=== PATIENT | male | born 1950 | race Caucasian/White ===

== ENCOUNTER → 2017-12-24 11:11 | Outpatient (CLI) | payer MEDICARE, OTHER, SELFPAY ==
--- NOTE | 2017-12-24 11:18 | RAD_ITS ---
STUDY: X-RAY - LEFT CLAVICLE REASON FOR EXAM: Male, 67 years old. Pain TECHNIQUE: Two view(s) of the clavicle. COMPARISON: None. FINDINGS: Normal clavicle. Normal acromioclavicular articulation. Normal visualized sternoclavicular articulation. There is a small calcific density just superior to the acromion. RAD/Clavicle IMPRESSION: No significant abnormalities are seen in the left clavicle. There are mild degenerative changes in the left shoulder. Electronically Signed: Riri Garvin MD at 23:55 EDT Tel Direct: [phone], Service support ,
== END ==
PROVIDERS: Family Provider Internal Medicine; PCP Internal Medicine; Visit Provider Internal Medicine
DX: M19.012 Primary osteoarthritis, left shoulder (principal)
CPT/HCPCS: 73000

== ENCOUNTER → 2018-01-08 07:16 | Outpatient (CLI) | payer MEDICARE, OTHER, SELFPAY ==
--- NOTE | 2018-01-08 07:15 | CT_ITS ---
STUDY: CT CHEST WITHOUT CONTRAST REASON FOR EXAM: Male, 67 years old. Swelling around left clavicle, history of basal cell cancer and melanoma RADIATION DOSAGE (If Supplied By Facility): CTDIvol = ( 17.38 ) mGy, DLP = ( 707.95 ) mGycm TECHNIQUE: Transaxial imaging of the chest was performed without intravenous contrast material. Sagittal and coronal reconstructions were performed. Individualized dose optimization techniques were used for this CT. COMPARISON: Left clavicle images dated December 24, 2017 FINDINGS: There is minimal dependent atelectasis in both lungs. There is a 3 mm opacity in the periphery of the right middle lobe on series 4 image 95. There is no demonstrated pleural abnormality. The heart is normal in size. There are calcifications of the coronary arteries. There are small lymph nodes scattered in the mediastinum. The hilar regions are unremarkable allowing for lack of contrast in the vessels. The pulmonary arteries are unremarkable. There are minimal vascular calcifications in the thoracic aorta. Incidentally noted is takeoff of the left vertebral artery from the aortic arch which is a normal anatomic variant. There are moderate degenerative changes in the visualized spine. There are mild degenerative changes in both shoulders. There are surgical clips in the left neck. There are no significant abnormalities in the visualized upper abdomen. CT/Chest without Contrast IMPRESSION: No abnormalities are seen in or around the left clavicle. There are no enlarged lymph nodes around the left clavicle. There are no abnormal masses. There are no abnormal bone masses. There are moderate degenerative changes in the visualized spine, and there are mild degenerative changes in both shoulders. There is a 3 mm opacity in the periphery of the right middle lobe which cannot be further characterized. This generally requires no further follow-up, however consideration for a six-month follow-up CT can be made in this patient with a history of melanoma. There is no pleural effusion or significant mediastinal lymphadenopathy. Electronically Signed: Riri Garvin MD at 10:16 EDT Tel Direct: [phone], Service support ,
--- NOTE | 2018-01-08 07:16 | DT_ITS ---
This patient was seen during an EMR downtime January 06, 2018 - January 13, 2018. This patient may have a combination of paper and electronic documentation or all paper documentation. All documentation is viewable within the e-chart portion of [employer] for each patient visit.
== END ==
PROVIDERS: Family Provider Internal Medicine; PCP Internal Medicine; Visit Provider Internal Medicine
DX: M54.12 Radiculopathy, cervical region (principal)
CPT/HCPCS: 71250

== ENCOUNTER → 2018-01-28 10:10 | Outpatient (CLI) | payer MEDICARE, OTHER, SELFPAY ==
--- NOTE | 2018-01-28 10:11 | CDU_ITS ---
Reason For Study: carotid stenosis Rt. Velocities/BP Lt. Velocities/BP Prox CCA 120/26.4 cm/sec. Prox CCA 141/27.5 cm/sec. Mid CCA 93.2/23.5. cm/sec. Mid CCA 105/24.4 cm/sec. Dist CCA 78.0/20.5 cm/sec. Dist CCA 95.9/23.6 cm/sec. Prox ICA 70.4/21.1 cm/sec. Prox ICA 60.4/17.6 cm/sec. Mid ICA 75.6/26.4 cm/sec. Mid ICA 90.9/30.5 cm/sec. Dist ICA 98.5/33.4 cm/sec. Dist ICA 98.5/35.2 cm/sec. Rt. ICA/CCA = 1.1. Lt. ICA/CCA = .9. Prox ECA 113/15.8 cm/sec. Prox ECA 116/16.5 cm/sec. Rt. Vert. 49.2/13.5 cm/sec. Lt. Vert. 43.4/11.1 cm/sec. Right Extracranial There is intimal thickening but no significant atherosclerotic plaque noted in the right common carotid artery. There is heterogeneous, irregular atherosclerotic plaque noted in the right internal carotid artery. There is heterogeneous, irregular atherosclerotic plaque noted in the right external carotid artery. Antegrade flow is noted in the right vertebral artery. Left Extracranial There is intimal thickening but no significant atherosclerotic plaque noted in the left common carotid artery. There is heterogeneous, irregular atherosclerotic plaque noted in the left internal carotid artery. There is heterogeneous, irregular atherosclerotic plaque noted in the left external carotid artery. Antegrade flow is noted in the left vertebral artery. Procedure Carotid Duplex 49705. The exam was diagnostic. Exam performed in department. Interpretation Summary Mild (<50%) stenosis right extracranial internal carotid. Mild (<50%) stenosis left extracranial internal carotid. Flow within the vertebral arteries is antegrade bilaterally. Ordering Physician: Halina Lopez Performed By: Joaquim Bustamante RVT
== END ==
PROVIDERS: Family Provider Internal Medicine; PCP Internal Medicine; Visit Provider Internal Medicine
DX: I65.23 Occlusion and stenosis of bilateral carotid arteries (principal); R93.8 Abnormal findings on diagnostic imaging of other specified body structures
CPT/HCPCS: 93880

== ENCOUNTER → 2018-04-17 10:27 | Outpatient (CLI) | payer MEDICARE, OTHER, SELFPAY ==
--- NOTE | 2018-04-17 10:30 | CT_ITS ---
STUDY: CT CHEST WITHOUT CONTRAST REASON FOR EXAM: Male, 68 years old. Abnormal chest CT. 6 month follow-up examination. The patient has a history of a 3 mm opacity in the periphery of the right middle lobe. History of melanoma. RADIATION DOSAGE (If Supplied By Facility): CTDIvol = ( 14.63 ) mGy, DLP = ( 500.90 ) mGycm TECHNIQUE: Transaxial imaging was performed without the administration of intravenous contrast material. Multiplanar coronal and sagittal images were reformatted. Individualized dose optimization techniques were used for this CT. COMPARISON: Comparison is made with prior examination dated January 08, 2018. FINDINGS: Stable appearance of a 3 mm noncalcified nodule in the anterior peripheral aspect of the right middle lobe as seen on axial image 76. This is unchanged. There is no demonstrated pleural abnormality. Normal heart and pericardium. There are multiple small lymph nodes within the mediastinum, which are normal in size and morphology most compatible with reactive lymph hyperplasia. Normal hilar regions. Normal unenhanced pulmonary arteries. Normal aorta arch and descending thoracic aorta. There are multi-level degenerative changes of the thoracic spine. There is no demonstrated abnormality of the visualized upper abdomen. CT/Chest without Contrast IMPRESSION: Stable examination. A 1 year follow-up is recommended. Electronically Signed: Caden Jacobs MD at 15:50 EDT Tel [phone], Service support ,
== END ==
PROVIDERS: Family Provider Internal Medicine; PCP Internal Medicine; Visit Provider Internal Medicine
DX: R93.8 Abnormal findings on diagnostic imaging of other specified body structures (principal)
CPT/HCPCS: 71250

== ENCOUNTER → 2019-01-06 13:26 | Outpatient (CLI) | payer SELFPAY ==
--- NOTE | 2019-01-06 13:31 | CT_ITS ---
HISTORY:HYPERLIPIDEMIA. No hx of HTN or elevated cholesterol EXAMINATION: CT Heart Quantitative coronary calcium W/O contrast TECHNIQUE: Helically acquired images were obtained of the chest. A radiation dose optimization technique was used for this scan. IV Contrast dosage and agent: None. COMPARISON: 04/17/18 CT chest. FINDINGS: UPPER ABDOMEN: No acute pathology. HEART AND PERICARDIUM: Heart size is normal. There is no pericardial effusion. Coronary artery atherosclerosis, please see calcium score report which is dictated separately. VESSELS: Thoracic aorta is not dilated. MEDIASTINUM AND VAZQUEZ: There is no mediastinal or hilar adenopathy. Esophagus is unremarkable. There is no hiatal hernia. LUNGS AND LARGE AIRWAYS: No acute findings. Incidental subpleural nodules in the right middle lobe and lingula are unchanged. No pneumothorax. PLEURA: Unremarkable. No pleural effusion or thickening. BONES: No suspicious lytic or blastic abnormality observed. CT/CCTA Calcium Scoring IMPRESSION: No concerning findings. Small subpleural nodules right middle lobe and lingula unchanged. Individualized dose optimization techniques were used for this CT. at 0439 Reported and signed by: Issa Petit MD Electronically Signed: Issa Petit, at 4:38 EDT Tel , Service support ,
--- NOTE | 2019-01-06 13:31 | CT_ITS ---
HISTORY:HYPERLIPIDEMIA. No hx of HTN or elevated cholesterol EXAMINATION: CT Heart Quantitative coronary calcium W/O contrast TECHNIQUE: Helically acquired images were obtained of the chest. A radiation dose optimization technique was used for this scan. IV Contrast dosage and agent: None. COMPARISON: 04/17/18 CT chest. FINDINGS: UPPER ABDOMEN: No acute pathology. HEART AND PERICARDIUM: Heart size is normal. There is no pericardial effusion. Coronary artery atherosclerosis, please see calcium score report which is dictated separately. VESSELS: Thoracic aorta is not dilated. MEDIASTINUM AND VAZQUEZ: There is no mediastinal or hilar adenopathy. Esophagus is unremarkable. There is no hiatal hernia. LUNGS AND LARGE AIRWAYS: No acute findings. Incidental subpleural nodules in the right middle lobe and lingula are unchanged. No pneumothorax. PLEURA: Unremarkable. No pleural effusion or thickening. BONES: No suspicious lytic or blastic abnormality observed. CT/Limited Chest CT w/CCTA IMPRESSION: No concerning findings. Small subpleural nodules right middle lobe and lingula unchanged. Individualized dose optimization techniques were used for this CT. at 0439 Reported and signed by: Issa Petit MD Electronically Signed: Issa Petit, at 4:38 EDT Tel , Service support ,
[2019-01-06 13:42] VITALS: BP 124/46; PULSE 63; RESP 16; O2SAT 95; BMI 27.3
--- NOTE | 2019-01-06 17:26 | CA.SCORE ---
Calcium Scoring Date of Study:: 01/06/19 Coronary Calcium Scoring: High-resolution Computed Tomographic imaging of the chest was performed on 01/06/2019 with particular attention paid to the coronary arteries. Images from the examination were analyzed for the presence and extent of coronary artery calcification , using coronary calcium quantification software. The patient tolerated the procedure well and there were no complications. The results of the coronary calcification analysis are provided below. - Findings Left Main (LM): 200 Left Anterior Descending (LAD): 534 Left Circumflex (LCX): 156 Right Coronary Artery (RCA): 595 Total Agatston Score: 1,485 Percentile Rankin - Greater than 90% of people of the same gender/similar age had the same or lower scores - Conclusion Calcium Scoring Interpretation: Calcium Score Interpretation 0 No identifiable atherosclerotic plaque. Very low cardiovascular disease risk. <5% chance of presence coronary artery disease A Negative Examination 1-10 Minimal Plaque burden. Significant coronary artery disease very unlikely. 11-100 Mild plaque burden. Likely mild or minimal coronary atherosclerosis. 101-400 Moderate plaque burden Moderate non-obstructive coronary artery disease highly likely. Over 400 Extensive plaque burden. High likelihood of at least one significant coronary stenosis (>50% diameter) Calcium Score: >400 High likelihood of at least one significant coronary stenosis - Continue cardiovascular risk factor evaluation and care as deemed appropriate
== END ==
PROVIDERS: Family Provider Internal Medicine; PCP Internal Medicine; Referring Provider Internal Medicine; Visit Provider Internal Medicine
DX: E78.5 Hyperlipidemia, unspecified (principal)
CPT/HCPCS: 75571; 76380

== ENCOUNTER → 2019-01-30 10:02 | Outpatient (CLI) | payer MEDICARE, OTHER, SELFPAY ==
[2019-01-06 13:42] VITALS: BMI 27.3
--- NOTE | 2019-01-30 10:09 | CDU_ITS ---
Reason For Study: carotid stenosis Rt. Velocities/BP Lt. Velocities/BP Prox CCA 112.5/27.8 cm/sec. Prox CCA 124.0/21.7 cm/sec. Mid CCA 108.6/26.5 cm/sec. Mid CCA 113.1/25.4 cm/sec. Dist CCA 96.9/22.6 cm/sec. Dist CCA 105.8/25.4 cm/sec. Prox ICA 95.6/25.3 cm/sec. Prox ICA 85.7/23.6 cm/sec. Mid ICA 91.6/32.7 cm/sec. Mid ICA 98.4/32.7 cm/sec. Dist ICA 85.5/25.3 cm/sec. Dist ICA 92.0/28.1 cm/sec. Rt. ICA/CCA = 96.5/112.5=0.9. Lt. ICA/CCA = 98.4/124.0=0.8. Prox ECA 154.0/11.5 cm/sec. Prox ECA 124.0/14.4 cm/sec. Rt. Vert. 41.5/16.0 cm/sec. Lt. Vert. 67.4/15.8 cm/sec. Right Extracranial There is homogeneous, smooth atherosclerotic plaque noted in the right common carotid artery. There is intimal thickening but no significant atherosclerotic plaque noted in the right internal carotid artery. There is heterogeneous, smooth atherosclerotic plaque noted in the right external carotid artery. Antegrade flow is noted in the right vertebral artery. Left Extracranial There is homogeneous, smooth atherosclerotic plaque noted in the left common carotid artery. There is heterogeneous, smooth atherosclerotic plaque noted in the left internal carotid artery. There is intimal thickening but no significant atherosclerotic plaque noted in the left external carotid artery. Antegrade flow is noted in the left vertebral artery. There is heterogeneous, irregular atherosclerotic plaque noted in the left bulb. Procedure Carotid Duplex 64807. The exam was diagnostic. Exam performed in department. Interpretation Summary No significant atherosclerotic plaque or stenosis noted in the right internal carotid artery. Mild (<50%) stenosis left extracranial internal carotid. Flow within the vertebral arteries is antegrade bilaterally. Heterogeneous, irregular atherosclerotic plaque is noted in the left carotid bulb, which does not appear to be hemodynamically significant. Ordering Physician: Halina Lopez Referring Physician: Halina Lopez Performed By: Rachel Cortes, SANDRA, RVT
== END ==
PROVIDERS: Family Provider Internal Medicine; PCP Internal Medicine; Referring Provider Internal Medicine; Visit Provider Internal Medicine
DX: I65.23 Occlusion and stenosis of bilateral carotid arteries (principal)
CPT/HCPCS: 93880

== ENCOUNTER → 2019-03-04 11:48 | Outpatient (CLI) | payer MEDICARE, OTHER, SELFPAY ==
[2019-03-04 09:18] VITALS: BMI 27.9
[2019-03-04 12:13] LABS: Absolute Lymphocyte Count 1.14 X10^3/uL (0.83-4.51); Absolute Neutrophil Count 2.4 X10^3/uL (2.0-7.7); Basophil# 0.05 X10^3/uL; Basophil% 1.1 % (0-1); Eosinophil# 0.11 X10^3/uL; Eosinophils% 2.4 % (0-5); Hemoglobin 14.9 g/dL (13.0-16.5); Lymphocyte # 1.14 X10^3/ul (4.0); Lymphocyte % 25.3 % (19-41); Mean Corp Hgb Conc 33.1 g/dL (32-36); Mean Corpuscular Volume 96.8 fL (80-94); Mean Platelet Vol. 9.9 fl (6.2-12.0); Monocyte# 0.75 X10^3/uL; Monocyte% 16.7 % (0-10); NRBC Flagged by Analyzer 0 % (0-5); Neutrophil # 2.43 X10^3/uL (2.7-7.7); Neutrophil % 54.1 % (47-70); Platelet Count 145 K/mm3 (150-450); RBC Distribution Width CV 12.6 % (11.6-14.6); Red Blood Count 4.65 M/mm3 (4.6-6.2); White Blood Count 4.5 K/mm3 (4.4-11.0)
[2019-03-04 12:46] LABS: Anion Gap 3 (5-15); BUN 14 mg/dL (7-18); BUN/Creat Ratio 16.3 RATIO (10-20); Calcium,Total 9.3 mg/dL (8.5-10.1); Chloride 101 mmol/L (98-107); Creatinine, Serum 0.86 mg/dL (0.70-1.30); EST Glomerular Filtration Rate 94 mL/min (>60); Est Glom Filt Rate - Afr Amer 114 mL/min (>60); Glucose 113 mg/dL (74-106); Potassium 4.5 mmol/L (3.5-5.1); Sodium Level 134 mmol/L (136-145)
== END ==
PROVIDERS: Family Provider Internal Medicine; PCP Internal Medicine; Referring Provider Internal Medicine Cardiovascular Disease; Visit Provider Internal Medicine Cardiovascular Disease
DX: I10 Essential (primary) hypertension (principal); R93.1 Abnormal findings on diagnostic imaging of heart and coronary circulation
CPT/HCPCS: 36415; 80048; 85025

== ENCOUNTER → 2019-03-25 12:49 | Outpatient (CLI) | payer MEDICARE, OTHER, SELFPAY ==
[2019-03-04 09:18] VITALS: BMI 27.9
--- NOTE | 2019-03-25 12:51 | ECHOD_ITS ---
Reason For Study: CAD/ASHD Procedure This was a 2D Doppler, Color Flow transthoracic echocardiogram. Exam performed in department. Left Ventricle Normal LV size. Left ventricular systolic function is normal. The estimated ejection fraction is 60 %. Normal diastology for age. No regional wall motion abnormalities noted. Right Ventricle Normal RV size. Normal systolic function. Atria Normal left atrium. Mitral Valve Normal mitral valve. Tricuspid Valve Normal tricuspid valve. Aortic Valve Normal aortic valve. Trisinus/trileaflet aortic valve. Pulmonic Valve Normal pulmonic valve. Great Vessels Normal aortic root. The pulmonary artery is normal size. Normal inferior vena cava. Pericardium/Pleural No pericardial effusion. MMode/2D Measurements & Calculations LVIDd: 3.9 cm IVSd: 1.1 cm LVOT diam: 2.0 cm LVIDs: 2.3 cm LVPWd: 0.86 cm LVOT area: 3.3 cm2 FS: 40.4 % LA dimension: 3.6 cm LAV(MOD-bp): 45.1 ml LA A4 area: 16.7 cm2 LAV(MOD-bp) Indexed: 22.9 ml/m2 LAV(MOD-sp2): 44.3 ml LAV(MOD-sp4): 40.2 ml RA A4 area: 13.0 cm2 Time Measurements MV dec time: 0.18 sec Doppler Measurements & Calculations MV E max martell: 69.1 cm/sec Lat Peak E' Martell: 11.8 cm/sec Med Peak E' Martell: 8.6 cm/sec MV A max martell: 55.9 cm/sec E/E' lat: 5.8 E/E' med: 8.0 MV E/A: 1.2 MV V2 max: 63.4 cm/sec MV P1/2t max martell: 63.4 cm/sec Ao V2 max: 99.7 cm/sec MV max P.6 mmHg MV P1/2t: 73.0 msec Ao max P.0 mmHg MV V2 mean: 34.9 cm/sec MV dec slope: 254.6 cm/sec2 BRANDON(V,D): 2.5 cm2 MV mean P.55 mmHg MV V2 VTI: 24.1 cm MVA(P1/2t): 3.0 cm2 LV V1 max: 74.4 cm/sec PA V2 max: 93.4 cm/sec PI end-d martell: 65.5 cm/sec LV V1 max P.2 mmHg TR max martell: 181.5 cm/sec TR max P.2 mmHg Interpretation Summary Normal LV size. Left ventricular systolic function is normal. The estimated ejection fraction is 60 %. Normal diastology for age. Ordering Physician: Marcello Hudson Referring Physician: Halina Lopez D.O. Performed By: Carson Walker RCS
== END ==
PROVIDERS: Family Provider Internal Medicine; PCP Internal Medicine; Referring Provider Internal Medicine Cardiovascular Disease; Visit Provider Internal Medicine Cardiovascular Disease
DX: I25.10 Atherosclerotic heart disease of native coronary artery without angina pectoris (principal); R93.1 Abnormal findings on diagnostic imaging of heart and coronary circulation
CPT/HCPCS: 93306

== ENCOUNTER 2019-03-30 06:59 | Day surgery (SDC) | payer MEDICARE, OTHER, SELFPAY ==
[2019-03-04 09:18] VITALS: BMI 27.9
[2019-03-30 07:17] VITALS: BMI 27.2
--- NOTE | 2019-03-30 08:09 | HP.PCM_ITS ---
<Kenneth Knox - Last Filed: 03/30/19 08:09> History and Physical Date of Admission: 03/30/19 [facility] [address] [place], [place] [address] OFFICE VISIT Date of Service: 03/04/19 MR#:[id number] Name: JOY MANZANO [facility] #:[id number] : 1950 Provider:Marcello Hudson MD Age/Sex: 69/M Location[place] [place] Status:Signed HPI [facility] History of Present Illness Details: Pleasant 69-year-old gentleman with no previous cardiac history who presented for a routine cardiac physical. He saw his primary physician who underwent testing with a lipid profile as well as a coronary calcium score. It demonstrated significant calcification noted involving the left main, left anterior descending artery, and right coronary artery. The total Agatston score was over 1400 ranking percentile of greater than 90%. He had previously had a carotid ultrasound which demonstrated less than 50% stenosis. He remains very active and bikes 2-3 times a week and denies any chest pain or paroxysmal nocturnal dyspnea or pedal edema she has had no neck arm or jaw discomfort suggest angina. His physical exam here today demonstrates clear lung quintanilla regular rate and rhythm and no pedal edema. Intake Vital Signs 03/04/19 Height 5 ft 8 in 03/04/19 Weight: 184 lb 03/04/19 Body Mass Index (BMI) 27.9 03/04/19 Blood Pressure 139/75 H 03/04/19 Respiratory Rate 16 03/04/19 Pulse Rate 62 03/04/19 Pulse Ox 96 03/04/19 Body Mass Index (BMI) 27.3 Intake Visit Reasons: PCP ref'd for CAD, no other Hx Allergies Penicillins [PCN] Allergy (Verified 03/04/19 09:19) Unknown Medications aspirin 81 mg tablet,delayed release 81 mg PO DAILY 03/03/19 [History Confirmed 03/04/19] cholecalciferol (vitamin D3) 2,000 unit capsule 2,000 unit PO DAILY 03/03/19 [History Confirmed 03/04/19] lisinopril 5 mg tablet 5 mg PO DAILY tab 03/03/19 [History Confirmed 03/04/19] simvastatin 20 mg tablet 20 mg PO QHS tab 03/03/19 [History Confirmed 03/04/19] tadalafil 5 mg tablet 5 mg PO DAILY PRN 03/03/19 [History Confirmed 03/04/19] cannabis Vapor INHALATION .qod 03/04/19 [History] [facility] Medical History Atherosclerosis of coronary artery of [place] heart without angina pectoris (Chronic) Essential (primary) hypertension (Chronic) Hyperlipidemia (Chronic) Cervical radiculopathy (Chronic) Erectile dysfunction (Chronic) Glaucoma (Chronic) Malignant melanoma (Chronic) Rosacea (Chronic) Vitamin D deficiency (Chronic) Surgical History H/O local excision of skin lesion (Resolved) History of appendectomy (Resolved) History of left knee surgery (Resolved) History of vasectomy (Resolved) Family History Father CVA (cerebral vascular accident) Sister Cancer Social History (Updated 03/04/19 @ 11:09 by Marcello Hudson MD) Smoking Status: Never smoker alcohol intake: current alcohol intake frequency: holidays/special occasions only caffeine: Yes Type: tea ROS Const Const: Negative for fatigue, weakness, headache(s), frequent falls, difficulty sleeping or excessive sweating Eyes Eyes: Negative for loss of peripheral vision, transient loss of vision, blurry vision, double vision or tunnel vision ENT ENT: Negative for headache(s), dizziness, Nosebleed/epistaxis or balance problems Cardio Chest Pain: No Palpitations: No Edema: None Muscle aches with walking: None Resp Respiratory: Negative for SOB with activity, SOB at rest, SOB orthopnea\SOB lying down, Cough or paroxysmal nocturnal dyspnea GI GI: Negative nausea, vomiting, heartburn or black,tarry stools : Negative for hematuria Musc Musc: Negative for muscle aches/ myalgia, muscle weakness, joint pain or balance problems Skin Skin: Negative non-healing lesions, rash or unusual bruising Neuro Neuro: Negative for dizziness, lightheadedness, near syncope, syncope, orthostatic symptoms, frequent falls, headache(s), weakness, blurry vision, double vision or lack of coordination Ham Hematologic/Lymphatic: Negative for easy bleeding or easy bruising Endo Endo: Negative for fatigue, excessive sweating or increased thirst/drinking Psych Psych: Negative for anxiety or depression Allergy Allergy/Immunology: Negative for hives, Negative for rash Cardiology Exam Const Appearance: cooperative, healthy appearing, no acute distress, well developed and well groomed Nutritional Appearance: average body habitus and well nourished Orientation: alert, awake and oriented x3 Head Head: normal to inspection, normocephalic and atraumatic Ears: hearing grossly normal bilaterally and external ears normal Nose: external nose normal, nares normal, nasal mucous membranes and turbinates normal, septum normal, no nasal discharge Face and Sinus: face symmetric Mouth: oral mucosae normal, tongue normal, oropharynx normal and moist mucous membranes Teeth and gingiva: dentition normal Throat: posterior oropharynx normal, tonsils normal and uvula midline Eyes General: appearance normal, both eyes and all related structures Eyelids: eyelids normal Conjunctivae: conjunctivae normal Pupils: PERRL, normal by confrontation and accommodation normal EOM: EOM intact bilaterally Neck Neck: normal visual inspection, trachea midline and no JVD JVD: +5 Carotids: normal carotid upstroke and bounding pulses Chest Chest inspection: normal inspection of the chest, symmetric chest movement and normal respiratory effort Auscultation: Bilateral: Clear to Auscultation Cardio Palpation: normal PMI Rate: regular rate Rhythm: regular rhythm Heart sounds: S1 normal, S2 normal and normal, physiologic split S2; negative rub, gallop or murmur GI GI: normal to inspection, soft, no hepatosplenomegaly and bowel sounds present Neuro General: alert, awake, oriented x3, gait normal, moves all extremities and no focal sensory deficit Skin Skin: no rashes or lesions noted Extremities Pulses: Normal: Right Femoral Pulse, Left Femoral Pulse, Right Dorsalis Pedis Pulse, Left Dorsalis Pedis Pulse, Right Posterior Tibial Pulse, Left Posterior Tibial Pulse, Right Radial Pulse, Left Radial Pulse Lower Extremity Edema: None: Bilateral Musculoskel Musculoskeletal: No joint tenderness Psych Psychological: normal affect Assessment & Plan 1. Abnormal Heart Score CT R93.1 Plan He does have a markedly abnormal calcium score of over 1400 registering over 90th percentile. I did discuss with him extensively about the possibility of pursuing stress testing versus left heart catheterization. He will prefer the latter. The risk benefits alternatives have been explained to him he understands and agrees to proceed. He will continue in the meantime on his asp irin and simvastatin. Orders Orders: 12 Lead EKG performed by [facility] Today Left Heart Cath/COR/LV Percut 3 Weeks Basic Metabolic Profile (BMP) Today Echo Complete Today CBC W/Diff, Automated Today 2. Essential (primary) hypertension I10 Plan He does appear to have mild hypertension which is well controlled on the current medical therapy. No changes were made with regard to the above. Orders Orders: 12 Lead EKG performed by [facility] Today Basic Metabolic Profile (BMP) Today 3. Hyperlipidemia E78.5 Plan He does have a history of hyperlipidemia. His most recent lipid profile performed through your outfit demonstrated excellent parameters with a total cholesterol 107, HDL of 80 and LDL of 63. This is on 20 mg of simvastatin. No changes were made with regard to the above. Thank you for allowing me to participate in the care of your patient. 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 No changes since last visit.
--- NOTE | 2019-03-30 09:07 | CL.D_ITS ---
Patient Name: JOY MANZANO Study Date: 03/30/2019 Performing: Marcello Hudson MD Ht: 68.11 inches 173 cm : 1950 Wt: 179.08 lbs 81.23 kg Age: 69 Gender: male BSA: 1.95 PROCEDURE(S) PERFORMED [id number]/LV CLINICAL PROFILE AND INDICATIONS Indications: Suspected CAD Heart Failure: None Stress/Imaging Stress/Image Study Performed: No CAD Presentations: No Sxs, no angina. CONCLUSIONS Moderate CAD in LAD RECOMMENDATIONS ASA Indefinitely Medical therapy DESCRIPTION OF PROCEDURE The patient arrived to the procedure lab. The risks and benefits of the procedure as well as a full d escription of our services here and current unavailability of surgical backup were fully explained to the patient and/or their significant other prior to the catheterization. The Timeout was completed, verifying the correct patient and procedure. The patient's procedural site was prepped and draped in the usual fashion. Local anesthetic was given subcutaneously to right groin region with Lidocaine 2%. Using a modified Seldinger technique, arterial access was obtained via the right radial artery, a 6F r sheath was inserted. Right Coronary Artery selective angiography was performed in multiple views u sing a 5 Fr. 4.0 [place] catheter. Left Coronary Artery selective angiography was performed in multiple views using a 5 Fr. 4.0 [place] catheter. Left Ventriculography was performed in SOTO projection using a 5 Fr. [place] catheter. LV to AO pullback pressures were then recorded.The arterial sheath was pulled and a TR Band was applied for hemostasis CORONARY ANGIOGRAPHY DOMINANCE: Right Dominant LEFT HEART ASSESSMENT Left Ventricular Ejection Fraction: by LV Gram 60 % Normal LV wall motion Normal Left Ventricular systolic function LEFT MAIN: Angiographically normal LEFT ANTERIOR DESCENDING ARTERY: MID LAD: Moderate luminal irregularities up to 50% CIRCUMFLEX ARTERY: Mild luminal irregularities less than 30% RIGHT CORONARY ARTERY: Mild luminal irregularities COMPLICATIONS No Complications PROCEDURE MEDICATIONS Versed 1 mg IV Fentanyl 50 mcg IV Versed 1 mg IV Oxygen: 2 L/min via nasal cannula Baby Aspirin (81mg) 1 Tabs PO @ 03/30/2019 07:17:50 Heparin diluted in 23cc Heparinized saline. Patient given 10cc IA of this solution. 03/30/2019 08:33: 51 Verapamil 2.5mg, Ntg 100mcgs, 2000 units of Heparin diluted in 23cc Heparinized saline. Patient give n 10cc IA of this solution. 03/30/2019 08:33:51 SUMMARY OF HEMODYNAMIC DATA Time AIR REST ECG 07:19:19 AO 107/73 (90) SA 08:36:26 LV 126/-8, 6 08:44:25 LV 125/-9, 7 08:44:31 LV 123/-8, 7 08:45:17 LV 124/-7, 9 08:45:23 LVp 125/-7, 9 08:45:27 AOp 119/59 (86) 08:45:32 Signed By Marcello Hudson MD On 03/30/2019 09:06:39 Marcello Hudson MD
== END 2019-03-30 10:35 | disposition home or self-care (01) ==
LOC: CLSP 07:00
PROVIDERS: Family Provider Internal Medicine; PCP Internal Medicine; Referring Provider Internal Medicine Cardiovascular Disease; Visit Provider Internal Medicine Cardiovascular Disease
DX: I25.10 Atherosclerotic heart disease of native coronary artery without angina pectoris (principal); I10 Essential (primary) hypertension; E78.5 Hyperlipidemia, unspecified; E55.9 Vitamin D deficiency, unspecified; R93.1 Abnormal findings on diagnostic imaging of heart and coronary circulation; Z79.82 Long term (current) use of aspirin; Z79.899 Other long term (current) drug therapy
CPT/HCPCS: 93458; 99152; 99153; J7040; Q9967; C1769; C1894

== ENCOUNTER → 2019-09-23 09:42 | Outpatient (CLI) | payer MEDICARE, OTHER, SELFPAY ==
--- NOTE | 2019-09-23 09:48 | US_ITS ---
STUDY: ABDOMINAL ULTRASOUND - RIGHT UPPER QUADRANT REASON FOR VISIT: Male, 69 years old ELEVATED LFT TECHNIQUE: Ultrasound evaluation of the right upper quadrant was performed with real-time and static cyr-scale imaging. TECHNICAL QUALITY: Limited. Examination limited by bowel gas. COMPARISON: None. FINDINGS: Liver: The liver measures 11.8 cm. There is normal echogenicity of the liver. The bile ducts are within normal limits. There is hepatic color flow. The direction of portal flow is hepatopetal. There is no demonstrated mass lesion. Gallbladder: Normal distended gallbladder. The gallbladder wall measures 1.9 mm. There is a negative sonographic Fonseca''s sign. There is no pericholecystic fluid. There are no gallstones. Common Bile Duct (C.B.D.): The common bile duct measures 3.5 mm. Pancreas: Normal size of the head, body and tail of the pancreas. There is normal echogenicity of the pancreas. There is no demonstrated pancreatic mass or cyst. Right Kidney: Normal size of the right kidney. The right kidney measures 10.7 cm. Normal renal cortex. The right cortex measures 1.8 cm. There is no demonstrated renal mass or cyst. There is no right hydronephrosis. US/Liver IMPRESSION: Normal right upper quadrant ultrasound examination. Electronically Signed: Jagdish Pham DO at 15:18 EST Tel , Service support ,
== END ==
PROVIDERS: PCP Internal Medicine; Referring Provider Internal Medicine; Visit Provider Internal Medicine
DX: R94.5 Abnormal results of liver function studies (principal)
CPT/HCPCS: 76705

== ENCOUNTER → 2020-02-01 12:52 | Outpatient (CLI) | payer MEDICARE, OTHER, SELFPAY ==
--- NOTE | 2020-02-01 12:57 | CDU_ITS ---
Reason For Study: STENOSIS Rt. Velocities/BP Lt. Velocities/BP Prox CCA 79.8/16.0 cm/sec. Prox CCA 116.2/16.7 cm/sec. Mid CCA 83.1/17.1 cm/sec. Mid CCA 105.1/19.2 cm/sec. Dist CCA 90.8/20.4 cm/sec. Dist CCA 81.8/17.9 cm/sec. Prox ICA 79.0/19.7 cm/sec. Prox ICA 57.0/15.3 cm/sec. Mid ICA 76.5/27.0 cm/sec. Mid ICA 92.9/30.3 cm/sec. Dist ICA 91.8/34.7 cm/sec. Dist ICA 84.2/29.2 cm/sec. Rt. ICA/CCA = 91.8/90.8=1.0. Lt. ICA/CCA = 92.9/116.2=0.8. Prox ECA 134.4/12.1 cm/sec. Prox ECA 113.1/10.8 cm/sec. Rt. Vert. 40.9/12.1 cm/sec. Lt. Vert. 55.5/9.2 cm/sec. Right Extracranial There is homogeneous, smooth atherosclerotic plaque noted in the right common carotid artery. There is intimal thickening but no significant atherosclerotic plaque noted in the right internal carotid artery. There is heterogeneous, smooth atherosclerotic plaque noted in the right external carotid artery. Antegrade flow is noted in the right vertebral artery. There is homogeneous, irregular atherosclerotic plaque noted in the right bulb. Left Extracranial There is homogeneous, smooth atherosclerotic plaque noted in the left common carotid artery. There is heterogeneous, smooth atherosclerotic plaque noted in the left internal carotid artery. There is intimal thickening but no significant atherosclerotic plaque noted in the left external carotid artery. Antegrade flow is noted in the left vertebral artery. There is heterogeneous, irregular atherosclerotic plaque noted in the left bulb. Procedure Carotid Duplex [id number]. The exam was diagnostic. Exam performed in department. Interpretation Summary No significant atherosclerotic plaque or stenosis noted in the right internal carotid artery. Mild (<50%) stenosis left extracranial internal carotid. Flow within the vertebral arteries is antegrade bilaterally. Irregular atherosclerotic plaque is noted in the carotid bulbs bilaterally, which does not appear to be hemodynamically significant. Ordering Physician: Halina Lopez Referring Physician: Halina Lopez Performed By: Rachel Cortes, SANDRA, RVT
== END ==
PROVIDERS: PCP Internal Medicine; Referring Provider Internal Medicine; Visit Provider Internal Medicine
DX: I65.23 Occlusion and stenosis of bilateral carotid arteries (principal)
CPT/HCPCS: 93880

== ENCOUNTER → 2021-04-14 09:53 | Outpatient (CLI) | payer MEDICARE, OTHER, SELFPAY ==
[2020-03-08 11:00] VITALS: BMI 26.7
--- NOTE | 2021-04-14 09:55 | CDU_ITS ---
Reason For Study: Bilateral carotid stenosis Rt. Velocities/BP Lt. Velocities/BP Prox CCA 96.9/18.6 cm/sec. Prox CCA 108.4/16.3 cm/sec. Mid CCA 90.4/20 cm/sec. Mid CCA 101.1/20 cm/sec. Dist CCA 81.2/18.6 cm/sec. Dist CCA 76.5/16.3 cm/sec. Prox ICA 58.1/15.1 cm/sec. Prox ICA 66.7/13.9 cm/sec. Mid ICA 74.1/24.9 cm/sec. Mid ICA 83.9/24.9 cm/sec. Dist ICA 85.1/29.8 cm/sec. Dist ICA 66.7/20 cm/sec. Prox ECA 137.5/15.2 cm/sec. Prox ECA 154/15.2 cm/sec. Rt. Vert. 33.3/11.6 cm/sec. Lt. Vert. 48.3/11.4 cm/sec. Right Extracranial There is homogeneous, smooth atherosclerotic plaque noted in the right common carotid artery. There is homogeneous, smooth atherosclerotic plaque noted in the right internal carotid artery. There is heterogeneous, smooth atherosclerotic plaque noted in the right external carotid artery. Antegrade flow is noted in the right vertebral artery. Left Extracranial There is homogeneous, smooth atherosclerotic plaque noted in the left common carotid artery. There is homogeneous, smooth atherosclerotic plaque noted in the left internal carotid artery. There is heterogeneous, smooth atherosclerotic plaque noted in the left external carotid artery. Antegrade flow is noted in the left vertebral artery. Procedure Carotid Duplex [id number]. This is a Carotid Duplex examination using B-mode, color flow and specral Doppler. Exam performed in department. VL/Carotid Duplex Ultrasound Interpretation Summary Mild (<50%) stenosis right extracranial internal carotid. Mild (<50%) stenosis left extracranial internal carotid. Flow within the vertebral arteries is antegrade bilaterally. Ordering Physician: Halina Lopez Referring Physician: Halina Lopez Performed By: Sharon Ceron RVT
== END ==
PROVIDERS: PCP Internal Medicine; Referring Provider Internal Medicine; Visit Provider Internal Medicine
DX: I65.23 Occlusion and stenosis of bilateral carotid arteries (principal)
CPT/HCPCS: 93880

== ENCOUNTER → 2022-06-25 | Outpatient (CLI) | payer MEDICARE, OTHER, SELFPAY ==
[2022-06-25 12:51] LABS: Anion Gap 5 (5-15); BUN 14 mg/dL (7-18); BUN/Creat Ratio 17.2 RATIO (10-20); Calcium,Total 9.5 mg/dL (8.5-10.1); Chloride 101 mmol/L (98-107); Creatinine, Serum 0.81 mg/dL (0.70-1.30); EST Glomerular Filtration Rate 100 mL/min (>60); Est Glom Filt Rate - Afr Amer 120 mL/min (>60); Glucose 73 mg/dL (74-106); Potassium 3.8 mmol/L (3.5-5.1); Sodium Level 136 mmol/L (136-145)
== END | disposition home or self-care (01) ==
PROVIDERS: PCP Internal Medicine; Referring Provider Physician Assistant Surgical; Visit Provider Physician Assistant Surgical
DX: U07.1 COVID-19 (principal)
CPT/HCPCS: 36415; 80048

== ENCOUNTER → 2022-07-16 | Outpatient (CLI) | payer MEDICARE, OTHER, SELFPAY ==
--- NOTE | 2022-07-16 12:59 | CDU_ITS ---
Reason For Study: Carotid Stenosis Rt. Velocities/BP Lt. Velocities/BP Prox CCA 71/15 cm/sec. Prox CCA 104/14 cm/sec. Mid CCA 67/14 cm/sec. Mid CCA 72/16 cm/sec. Dist CCA 66/14 cm/sec. Dist CCA 55/13 cm/sec. Prox ICA 47/18 cm/sec. Prox ICA 52/15 cm/sec. Mid ICA 55/20 cm/sec. Mid ICA 56/17 cm/sec. Dist ICA 91/31 cm/sec. Dist ICA 81/25 cm/sec. Rt. ICA/CCA = 1.4. Lt. ICA/CCA = 1.1. Prox ECA 84/6 cm/sec. Prox ECA 76/7 cm/sec. Rt. Vert. 49/15 cm/sec. Lt. Vert. 59/9 cm/sec. Right Extracranial There is heterogeneous, smooth atherosclerotic plaque noted in the right common carotid artery. There is heterogeneous, irregular atherosclerotic plaque noted in the right internal carotid artery. There is heterogeneous, irregular atherosclerotic plaque noted in the right external carotid artery. Antegrade flow is noted in the right vertebral artery. Left Extracranial There is heterogeneous, irregular atherosclerotic plaque noted in the left common carotid artery. There is heterogeneous, irregular atherosclerotic plaque noted in the left internal carotid artery. There is heterogeneous, irregular atherosclerotic plaque noted in the left external carotid artery. Antegrade flow is noted in the left vertebral artery. Procedure Carotid Duplex [id number]. This is a Carotid Duplex examination using B-mode, color flow and specral Doppler. Exam performed in department. VL/Carotid Duplex Ultrasound Interpretation Summary Mild (<50%) stenosis right extracranial internal carotid. Mild (<50%) stenosis left extracranial internal carotid. Flow within the vertebral arteries is antegrade bilaterally. Ordering Physician: Halina Lopez Referring Physician: Halina Lopez Performed By: Bonnie Knox, SANDRA, RVT
== END | disposition home or self-care (01) ==
LOC: CVS 12:59
PROVIDERS: PCP Internal Medicine; Visit Provider Internal Medicine
DX: I65.23 Occlusion and stenosis of bilateral carotid arteries (principal)
CPT/HCPCS: 93880

== ENCOUNTER → 2023-07-31 | Outpatient (CLI) | payer MEDICARE, OTHER, SELFPAY ==
--- NOTE | 2023-07-31 10:03 | CDU_ITS ---
Reason For Study: Bilateral Carotid Stenosis Rt. Velocities/BP Lt. Velocities/BP Prox CCA 111.3/22.3 cm/sec. Prox CCA 116.2/23.0 cm/sec. Mid CCA 88.3/23.4 cm/sec. Mid CCA 101.6/24.8 cm/sec. Dist CCA 70.7/21.2 cm/sec. Dist CCA 86.9/23.0 cm/sec. Prox ICA 78.0/30.8 cm/sec. Prox ICA 57.8/19.3 cm/sec. Mid ICA 71.5/23.6 cm/sec. Mid ICA 86.4/32.5 cm/sec. Dist ICA 90.8/32.5 cm/sec. Dist ICA 67.7/23.7 cm/sec. Rt. ICA/CCA = 1.0. Lt. ICA/CCA = 0.9. Prox ECA 138.1/21.2 cm/sec. Prox ECA 122.1/14.5 cm/sec. Rt. Vert. 49.0/14.9 cm/sec. Lt. Vert. 49.0/11.7 cm/sec. Right Extracranial There is intimal thickening but no significant atherosclerotic plaque noted in the right common carotid artery. There is heterogeneous, irregular atherosclerotic plaque noted in the right internal carotid artery. There is heterogeneous, irregular atherosclerotic plaque noted in the right external carotid artery. Antegrade flow is noted in the right vertebral artery. Left Extracranial There is homogeneous, smooth atherosclerotic plaque noted in the left common carotid artery. There is heterogeneous, irregular atherosclerotic plaque noted in the left internal carotid artery. There is heterogeneous, irregular atherosclerotic plaque noted in the left external carotid artery. Antegrade flow is noted in the left vertebral artery. VL/Carotid Duplex Ultrasound Interpretation Summary Mild (<50%) stenosis right extracranial internal carotid. Mild (<50%) stenosis left extracranial internal carotid. Flow within the vertebral arteries is antegrade bilaterally. Ordering Physician: Halina Lopez Referring Physician: Halina Lopez Performed By: Stevie Carrillo RVT
== END | disposition home or self-care (01) ==
LOC: CVS 10:02
PROVIDERS: PCP Internal Medicine; Referring Provider Internal Medicine; Visit Provider Internal Medicine
DX: I65.23 Occlusion and stenosis of bilateral carotid arteries (principal)
CPT/HCPCS: 93880

== ENCOUNTER → 2024-02-03 | Outpatient (CLI) | payer MEDICARE, OTHER, SELFPAY ==
--- NOTE | 2024-02-03 10:14 | US_ITS ---
EXAM: US ABDOMEN LIMITED, RIGHT UPPER QUADRANT CLINICAL INDICATION: elevated LFT''s -- elevated LFT''s TECHNIQUE: Real-time ultrasound of the right upper quadrant with image documentation. COMPARISON: No relevant prior studies available. FINDINGS: LIVER: Liver echogenicity appears increased suggesting diffuse parenchymal liver disease, likely steatosis. No intrahepatic biliary ductal dilation. GALLBLADDER: Normal. No shadowing gallstone. No gallbladder wall thickening is demonstrated. No pericholecystic fluid. Negative sonographic Fonseca''s sign. COMMON BILE DUCT: Unremarkable as visualized. The proximal common bile duct is normal size. PANCREAS: Unremarkable as visualized. No focal abnormality is demonstrated in the pancreas. No pancreatic ductal dilatation. RIGHT KIDNEY: Normal. There is no hydronephrosis. No shadowing calculus. No focal lesion or perinephric collection is demonstrated. US/Abdomen Limited IMPRESSION: Parenchymal liver disease. Electronically Signed: Tiburcio Cohen MD at 13:16 EDT ,
== END | disposition home or self-care (01) ==
LOC: US 10:13
PROVIDERS: PCP Internal Medicine; Referring Provider Internal Medicine; Visit Provider Internal Medicine
DX: R79.89 Other specified abnormal findings of blood chemistry (principal)
CPT/HCPCS: 76705

== ENCOUNTER → 2024-07-15 | Outpatient (CLI) | payer MEDICARE, OTHER, SELFPAY ==
--- NOTE | 2024-07-15 16:08 | STRESSREP_ITS ---
Stress Test Report Exercise myocardial perfusion stress test. 74-year-old male with a history of coronary disease Stress protocol: Resting EKG demonstrates normal sinus rhythm with a rate of 63 bpm resting blood pressure is 110/64 mmHg. The patient exercised according to the regular [facility] protocol for a total duration of 7 minutes attaining a maximum heart rate of 160 bpm which was 108% of maximum predicted heart rate; the maximum workload was 10 metabolic equivalents. At rest there were no ST or T wave changes noted to suggest ischemia and at peak exercise upsloping ST changes only were noted which did not meet the criteria for ischemia. No clinical angina was noted the test was terminated due to the target heart rate being achieved/fatigue. The peak blood pressure was 164/6 mmHg. Rate-pressure product was 20,700. Myocardial perfusion protocol. 14.9 mCi of technetium 99m sestamibi was injected at rest. The patient exercised according to regular [facility] protocol for total duration of 7 minutes and at peak exercise 45 mCi of technetium 99m sestamibi was injected stress images were obtained stress and rest images were reconstructed in comparing the short axis vertical long and horizontal long axis. Gated images were also obtained. Perfusion SPECT analysis: Review of the stress images demonstrate normal uptake of tracer noted in all ar eas of the myocardium. The resting images similarly demonstrate normal uptake of tracer noted in all areas of the myocardium. No areas of reversibility are noted to suggest ischemia no previous infarct was noted. Gated SPECT analysis: The gated ejection fraction is 77%. Conclusion: Normal exercise myocardial perfusion stress test at a high workload Preserved ejection fraction.
== END | disposition home or self-care (01) ==
LOC: CVS 06:59
PROVIDERS: PCP Internal Medicine; Referring Provider Nurse Practitioner Gerontology; Visit Provider Nurse Practitioner Gerontology
DX: I25.10 Atherosclerotic heart disease of native coronary artery without angina pectoris (principal)
CPT/HCPCS: 78452; 93017; A9500; A4216

== ENCOUNTER → 2024-08-17 | Outpatient (CLI) | payer MEDICARE, OTHER, SELFPAY ==
--- NOTE | 2024-08-17 09:51 | CDU_ITS ---
Reason For Study: Carotid Stenosis Rt. Velocities/BP Lt. Velocities/BP Prox CCA 122.9/20.6 cm/sec. Prox CCA 124.8/16.0 cm/sec. Mid CCA 93.7/22.5 cm/sec. Mid CCA 101.0/24.3 cm/sec. Dist CCA 77.3/13.3 cm/sec. Dist CCA 70.2/14.5 cm/sec. Prox ICA 67.4/15.7 cm/sec. Prox ICA 57.0/12.6 cm/sec. Mid ICA 72.9/23.4 cm/sec. Mid ICA 73.0/22.0 cm/sec. Dist ICA 66.3/24.5 cm/sec. Dist ICA 67.4/23.9 cm/sec. Rt. ICA/CCA = 0.8. Lt. ICA/CCA = 0.7. Prox ECA 145.56/22.6 cm/sec. Prox ECA 93.7/11.4 cm/sec. Rt. Vert. 39.4/10.9 cm/sec. Lt. Vert. 59.8/8.8 cm/sec. Right Extracranial There is intimal thickening but no significant atherosclerotic plaque noted in the right common carotid artery. There is heterogeneous, irregular atherosclerotic plaque noted in the right internal carotid artery. There is heterogeneous, irregular atherosclerotic plaque noted in the right external carotid artery. Antegrade flow is noted in the right vertebral artery. Left Extracranial There is heterogeneous, irregular atherosclerotic plaque noted in the left common carotid artery. There is heterogeneous, irregular atherosclerotic plaque noted in the left internal carotid artery. There is heterogeneous, irregular atherosclerotic plaque noted in the left external carotid artery. Antegrade flow is noted in the left vertebral artery. Procedure Carotid Duplex [id number]. This is a Carotid Duplex examination using B-mode, color flow and specral Doppler. Exam performed in department. VL/Carotid Duplex Ultrasound Interpretation Summary Mild (<50%) stenosis right extracranial internal carotid. Mild (<50%) stenosis left extracranial internal carotid. Flow within the vertebral arteries is antegrade bilaterally. Ordering Physician: Halina Lopez Referring Physician: Halina Lopez Performed By: Sharon Ceron RVT and Student
== END | disposition home or self-care (01) ==
LOC: CVS 09:48
PROVIDERS: PCP Internal Medicine; Referring Provider Internal Medicine; Visit Provider Internal Medicine
DX: I65.23 Occlusion and stenosis of bilateral carotid arteries (principal)
CPT/HCPCS: 93880

== ENCOUNTER → 2025-02-11 | Outpatient (CLI) | payer MEDICARE, OTHER, SELFPAY ==
--- NOTE | 2025-02-11 08:59 | US_ITS ---
PROCEDURE: ABD LIMITED W/ ELASTOGRAPHY REASON FOR EXAM: FATTY LIVER COMPARISON: February 03, 2024. TECHNIQUE: Right upper quadrant abdominal ultrasound. [facility] ElastQ Imaging shear wave elastography for non-invasive assessment of liver tissue stiffness. [facility]tar EPIQ Elite. FINDINGS: LIVER: Size: Unremarkable Length: 13.4 cm Echotexture: Diffusely echogenic suggesting fatty infiltration Contour: Normal Lesions: None identified Elastography: EQI Med: 6.93 kPa EQI Med [place]: 1.51 m/s IQR/Med: 18.5 %* GALLBLADDER: No stones sludge wall thickening or tenderness. COMMON BILE DUCT: Normal measuring 3 mm . PANCREAS: Normal Visualized portions of the right kidney are unremarkable. No right upper quadrant ascites. US/ABD Limited w/ Elastography IMPRESSION: Mild hepatic fibrosis. Fatty infiltration of the liver. Reference Values: SRU <1.37 m/s (5.7kPa): No to mild fibrosis 1.37 m/s - 2.2 m/s: Moderate to severe fibrosis >2.2 m/s (15kPa): Significant fibrosis / cirrhosis METAVIR Score F2 or higher: 1.34 m/s (5.7kPa) F3 or higher: 1.55 m/s (7.3kPa) F4: 1.80 m/s (10kPa) * If the IQR/Med is >30%, the variance in the measurements is a large and the a ccuracy of the measurement may be in question. Reading Location: [place] [id number]
== END | disposition home or self-care (01) ==
LOC: US 08:55
PROVIDERS: PCP Internal Medicine; Referring Provider Internal Medicine; Visit Provider Internal Medicine
DX: K76.0 Fatty (change of) liver, not elsewhere classified (principal)
CPT/HCPCS: 76705; 76981